=== PATIENT | female | born 1980 | race Caucasian/White ===

== ENCOUNTER 2019-02-15 20:57 | Observation (INO) | payer OTHER ==
[~2019-02-15] VITALS: Ht 167.6 cm; Wt 74.4 kg
[2019-02-15 21:53] VITALS: BP 102/63; PULSE 65; RESP 19
[2019-02-15 21:56] VITALS: Ht 167.6 cm; Wt 74.4 kg
[2019-02-15] MEDS ORDERED: NACL 0.9% 3 ML SYG IV SCH (22:00)
[2019-02-15] MEDS ORDERED: BISACODYL (EC) 5 MG TAB PO PRN (22:00)
[2019-02-15] MEDS ORDERED: DOCUSATE SODIUM 100 MG CAP PO PRN (22:00)
[2019-02-15] MEDS ORDERED: ACETAMINOPHEN 325 MG TAB PO PRN (22:00)
[2019-02-15] MEDS ORDERED: ONDANSETRON 4 MG INJ IV PRN ×2 (22:00)
--- NOTE | 2019-02-15 22:02 | HP ---
Date/Time of Note Date/Time of Note DATE: 02/15/19 TIME: 22:02 Assessment/Plan VTE Prophylaxis SCD applied (from Nsg): Yes Pharmacological prophylaxis: NA/contraindicated Pharm contraindication: low risk/ambulating Assessment/Plan Hospital Course This is a 38-year-old female being admitted to the telemetry floor for: #1 headache with blurry vision: Possibly secondary to underlying migraine vs tension versus ophthalmologic etiology. MRI of the brain did not show any acute abnormalities. Patient initially reported a headache followed by blurry vision. She does report that her symptoms have improved, but she does still notice spots in her eyes. At the current time will provide her Tylenol for her headaches. Unfortunately we do not have ophthalmology specialty readily available, however in the a.m. we will ask the dayshift to see if we may be able to have a specialist come see the patient. I have consulted OB on the [email or web address] to assist in consultation. #2 diabetes mellitus: We will check a hemoglobin A1c. #3 Abnormal ABG: ABG performed at the transferring hospital was concerning and that it showed arterial O2 of 32. I will obtain a stat ABG to confirm this. She is currently satting at 100% on room air and denies any shortness of breath. If her ABG turns out to be abnormal will order a chest x-ray and VQ scan. #4 normocytic anemia: We will check iron stores #5 intrauterine : Patient is 14 weeks . Will obtain a abdominal ultrasound. OB has already been consulted. Also order Doppler heart sounds. #6 bilateral lower extremity pain: Patient does have some mild tenderness on examination but there is no erythema or warmth or swelling noted. Will obtain a venous Doppler ultrasound of the lower extremities bilaterally stat. #7 DVT GI prophylaxis: SCDs once lower extremity DVT is ruled out., no GI prophylaxis indicated Further treatment strategy will be implemented for clinical course HPI/ROS Admit Date/Time Admit Date/Time Feb 15, 2019 at 21:20 Hx of Present Illness Chief complaint: Blurred vision This is a 42-year-old female G5, who is currently 14 weeks who was transferred from [facility] where she presented for symptoms of blurred vision and headache that began this morning. States that she went to sleep with a headache. She reported that she woke up in the morning and noticed that she had blurred vision. She denied any chest pain nausea vomiting or diarrhea. Denies any vaginal bleeding or vaginal discharge. She apparently was told that she might be put on insulin next week. Patient had an MRI brain without contrast performed which showed: Normal MRI of the brain. She also had a ultrasound of the OB 14 weeks which showed: Single live intrauterine with a heart rate of 147 bpm fetus is viable presentation. Placenta is fundal. Single live intrauterine of 14 weeks and 6 days. She was recently told that she was diabetic but has not been started on any medications. Upon arrival to [facility] emergency department patient reports improvement in her symptoms. She does report light sensitivity. And at times she reports Pertinent laboratory findings from transfer facility please see chart for full details: Glucose 117 White blood cells 9 hemoglobin 11.5 hematocrit 34.2 platelet count 290 Sodium 137 potassium 3.6 chloride 105 CO2 26 creatinine 0.6 BUN 7 Beta-hCG 72,188 blood type a positive Direct bili 0.1 total bili 0.4 alk phos 32 ALT 19 AST 18 ABG: Arterial pH 7.43/CO2 36/O2 32/bicarb 23.9 Allergies: NKDA Medications: vitamins ROS Const: As per HPI Eyes : As per HPI ENT: No pain, sore throat, congestion, congestion, dysphagia or discharge Respiratory: No shortness of breath, cough, sputum, wheezing, or pleuritic pain Cardiovascular: No chest pain, palpitation, PND, or edema GI : no change in appetite, abdominal pain, nausea, vomiting, diarrhea, constipation, or change in the color his stool Genitourinary: No dysuria, hematuria, flank pain , discharge or CVA tenderness Musculoskeletal: As per HPI Skin: No rash, bruising or hives Neuro: No headache, dizziness, syncope, seizure, focal weakness Endocrine: No polyuria, polydipsia, temperature intolerance Psych: No hallucination, depression, anxiety or suicidal ideation PMH/Family/Social Past Medical History Diabetes mellitus type 2 Medications Current Medications IV Flush (NS 3 ml) 3 ml PER PROTOCOL IV ; Start 02/15/19 at 22:00 Acetaminophen (Tylenol Tab) 650 mg Q6H PRN PO .PAIN 1-3 OR TEMP; Start 02/15/19 at 22:00 Docusate Sodium (Colace) 100 mg Q12H PRN PO .CONSTIPATION; Start 02/15/19 at 22:00 Bisacodyl (Dulcolax) 5 mg DAILY PRN PO .CONSTIPATION; Start 02/15/19 at 22:00 Ondansetron HCl (Zofran Inj) 4 mg Q4H PRN IV NAUSEA/VOMITING; Start 02/15/19 at 22:00 Coded Allergies: No Known Allergy (Unverified , 05/29/15) Past Surgical History Past Surgical Hx: no surgical history Family History Significant Family History: no pertinent family hx Social History Alcohol Use: none Smoking Status: Never smoker Drug Use: none Exam/Review of Systems Vital Signs Vitals Vital Signs Date Temp Pulse Resp B/P (MAP) Pulse Ox O2 O2 Flow FiO2 Time Delivery Rate 02/15/19 98.3 65 19 102/63 97 Room Air 21:53 (76) Exam Exam General: Patient is currently lying in bed in no acute distress HEENT: Atraumatic, normocephalic. The pupils are equal, round and reactive. Extraocular motor are intact, she does report spots in the eye subjectively, on visual examination I was not able to elicit any abnormalities Neck: Supple with full range of motion. No rigidity or meningismus Chest: Nontender Lungs: Clear to auscultation bilaterally no crackles rales or wheezing Heart: Normal S1-S2, Regular rhythm and rate. No murmur, S3, or S4 Abdomen: Gravid, soft , nontender, nondistended , bowel sounds are present. No guarding no rebound tenderness , No masses or organomegaly. No costovertebral temporal angle mass Extremities: Mild tenderness noted of the bilateral lower extremities, but no overt swelling appreciated, Neurologic: Normal mental status, speech normal, cranial nerves II through XII are intact, motor and sensory are intact, no focal weakness, strength 5 out of 5 in bilateral upper and lower extremities RADHA KUMARI Feb 15, 2019 22:02
[2019-02-16] VITALS: BP_SYST 109; BP_SYST 110; BP_SYST 116; BP_DIAS 56; BP_DIAS 58; BP_DIAS 60; PULSE 65; RESP 20
[2019-02-16] MEDS ORDERED: POTASSIUM CHLORIDE (SR) 20 MEQ TAB PO STA (04:35)
[2019-02-16] MEDS ORDERED: MAGNESIUM SULFATE 1 GM/D5W 100 ML IVPB ONE (05:00)
[2019-02-16 05:40] VITALS: BP 97/55; PULSE 73; RESP 21
[2019-02-16] MEDS ORDERED: SOD CHLORIDE 0.9% 500 ML IV ONE (07:00)
[2019-02-16 07:19] VITALS: BP 89/54; PULSE 57; RESP 19
[2019-02-16 11:22] VITALS: BP_SYST 111; BP_SYST 96; BP_SYST 98; BP_DIAS 53; BP_DIAS 55; PULSE 56; RESP 19
--- NOTE | 2019-02-16 11:37 | PDOCDIS ---
Discharge Instructions DIAGNOSIS Discharge Diagnosis Headache CONDITION [id number] Patient Condition: [id number] Stable FOLLOW UP/APPOINTMENTS Follow-up Plan Continue pre- care as prescribed by your manager van It is important to eat a healthy diet low in sugar Check with your obstetritian on whether you need to have your blood sugar checked in the next couple weeks JENIFFER JAMES MD Feb 16, 2019 11:37
--- NOTE | 2019-02-16 13:48 | DS ---
Date/Time of Note Date/Time of Note DATE: 02/16/19 TIME: 13:46 Discharge Summary Admission/Discharge Info Admit Date/Time Feb 15, 2019 at 21:20 Discharge Date/Time Discharge Diagnosis Headache Patient Condition: Stable Hospital Course The patient underwent MRI of her brain which was negative for any acute abnormalities. She was provided analgesia. She continued to have mild headache but visual symptoms completely resolved. I suspect this is tension headache with aura. She has no clinical or radiographic suggestion of stroke or other acute neurologic process. Given resolved symptosm and patient request to go home, I will discharge her and she will follow up with her building consultant as an outpatient Home Meds No Active Prescriptions or Reported Meds Follow-up Plan Continue pre- care as prescribed by your building consultant It is important to eat a healthy diet low in sugar Check with your obstetritian on whether you need to have your blood sugar checked in the next couple weeks Primary Care Provider Not On Staff Doctor Pending Labs Laboratory Tests Test 02/15/19 22:03 02/15/19 22:06 02/15/19 22:50 02/16/19 05:45 Sodium Level 138 mmol/L (135-144 ) Potassium 3.8 Level mmol/L (3.5-5.1 ) Chloride Level 107 mmol/L (97-110) Carbon Dioxide 25 Level mmol/L (21-31) Anion Gap 6 (5-13) Blood Urea 7 mg/dl (7-20) Nitrogen Creatinine 0.57 mg/dl (0.44-1.0 0) Est Glomerular > 60 Filtrat mL/min (>60) Rate mL/min Glucose Level 73 mg/dl (70-220) Calcium Level 9.0 mg/dl (8.4-10.2 ) Magnesium 1.8 Level mg/dl (1.7-2.5) Total 0.2 Bilirubin mg/dl (0.2-1.3) Direct 0.00 Bilirubin mg/dl (0.00-0.2 0) Indirect 0.2 Bilirubin mg/dl (0-1.1) Aspartate Amino 18 IU/L (15-46) Transf (AST/SGO T) Alanine 17 IU/L (13-69) Aminotransferas e (ALT/SGPT) Alkaline 38 Phosphatase IU/L (42-121) Total Protein 6.2 g/dl (6.1-8.1) Albumin 3.3 g/dl (3.3-4.9) Globulin 2.90 g/dl (1.3-3.2) Albumin/Globuli 1.13 n Ratio White Blood 9.1 Count 10^3/ul (4.8-1 0.8) Red Blood 3.75 Count 10^6/ul (4.20- 5.40) Hemoglobin 10.3 g/dl (12.0-16. 0) Hematocrit 31.2 % (37.0-47.0) Mean 83.2 Corpuscular fl (82.0-101.0 Volume ) Mean 27.5 Corpuscular pg (29.0-33.0) Hemoglobin Mean 33.0 Corpuscular g/dl (32.0-37. Hemoglobin Conc 0) ent Red Cell 13.2 Distribution % (11.5-14.5) Width Platelet Count 283 10^3/UL (140-4 15) Mean Platelet 10.5 Volume fl (7.4-10.4) Immature 0.600 Granulocytes % % (0.001-0.429 ) Neutrophils % 67.4 % (39.0-77.0) Lymphocytes % 19.0 % (15.0-51.0) Monocytes % 9.6 % (0.0-11.0) Eosinophils % 3.1 % (0.0-7.0) Basophils % 0.3 % (0.0-2.0) Nucleated Red 0.0 Blood Cells % /100WBC (0.0-0 .0) Immature 0.050 Granulocytes # 10^3/ul (0.0-0 .031) Neutrophils # 6.1 10^3/ul (1.6-7 .5) Lymphocytes # 1.7 10^3/ul (0.8-2 .9) Monocytes # 0.9 10^3/ul (0.3-0 .9) Eosinophils # 0.3 10^3/ul (0.0-0 .5) Basophils # 0.0 10^3/ul (0.0-0 .1) Nucleated Red 0.0 Blood Cells # 10^3/ul (0.0-0 .0) Blood Gas Blood arterial Specimen Source Arterial Blood 02/16/2019 12:2 Date Drawn 0:01 AM Arterial Blood 7.384 (7.350-7 pH .450) (Temp corrected ) Arterial Blood 37.9 pCO2 mmhg (35-45) (Temp correct) Arterial Blood 97.2 pO2 mmHG (80-100.0 (Temp corrected ) ) Arterial Blood 22.1 HCO3 mmol/L (22.0-2 6.0) Arterial Blood -2.6 Base Excess mmol/L (-3.0-3 ) Arterial Blood 96.8 Oxygen Saturati mmHG (95.0-98. on 0) Darryl Test ACCEPTAB Arterial Blood Right Brachial Gas Puncture Site Arterial 0.3 Blood Carboxyhe % (0.0-3.0) moglobin Arterial Blood 0.2 Methemoglobin % (0.0-1.5) Blood Gas A-a 7.1 O2 mmHg (7.0-24.0 Differential ) Oxyhemoglobin 96.3 Percent % (93.0-99.0) Blood Gas 37.0 C Temperature Blood Gas 20 Actual Respiration Rat e Blood Gas ROOM AIR Modality FiO2 21.0 % Blood Gas S.H. Notified Whom Blood Gas 02/16/2019 12:2 Notified Time 5:03 AM Urine Color YELLOW (YELLOW ) Urine Clarity CLEAR (CLEAR) Urine pH 6.0 (5.0-9.0) Urine Specific 1.019 (1.003-1 Carmi .030) Urine Ketones NEGATIVE mg/dL (NEGATIV E) Urine Nitrite NEGATIVE mg/dL (NEGATIV E) Urine NEGATIVE Bilirubin mg/dL (NEGATIV E) Urine NEGATIVE Urobilinogen mg/dL (NEGATIV E) Urine Leukocyte NEGATIVE Alisa/u Esterase l Urine NEGATIVE Hemoglobin mg/dL (NEGATIV E) Urine Glucose NEGATIVE mg/dL (NEGATIV E) Urine Total NEGATIVE Protein mg/dl (NEGATIV E) Urine Opiates Negative (NEGA Screen TIVE) Urine Negative (NEGA Barbiturates TIVE) Urine Negative (NEGA Amphetamines TIVE) Screen Urine Negative (NEGA Benzodiazepines TIVE) Screen Urine Cocaine Negative (NEGA Screen TIVE) Urine Negative (NEGA Cannabinoids TIVE) Test 02/16/19 06:10 White Blood 8.9 Count 10^3/ul (4.8-10 .8) Red Blood 3.60 Count 10^6/ul (4.20-5 .40) Hemoglobin 10.1 g/dl (12.0-16.0 ) Hematocrit 34.7 % (37.0-47.0) Mean 96.4 Corpuscular fl (82.0-101.0) Volume Mean 28.1 Corpuscular pg (29.0-33.0) Hemoglobin Mean 29.1 Corpuscular g/dl (32.0-37.0 Hemoglobin Conc ) ent Red Cell 13.3 Distribution % (11.5-14.5) Width Platelet Count 186 10^3/UL (140-41 5) Mean Platelet 10.0 Volume fl (7.4-10.4) Immature 0.400 Granulocytes % % (0.001-0.429) Neutrophils % 65.7 % (39.0-77.0) Lymphocytes % 21.6 % (15.0-51.0) Monocytes % 8.5 % (0.0-11.0) Eosinophils % 3.4 % (0.0-7.0) Basophils % 0.4 % (0.0-2.0) Nucleated Red 0.0 Blood Cells % /100WBC (0.0-0. 0) Immature 0.040 Granulocytes # 10^3/ul (0.0-0. 031) Neutrophils # 5.9 10^3/ul (1.6-7. 5) Lymphocytes # 1.9 10^3/ul (0.8-2. 9) Monocytes # 0.8 10^3/ul (0.3-0. 9) Eosinophils # 0.3 10^3/ul (0.0-0. 5) Basophils # 0.0 10^3/ul (0.0-0. 1) Nucleated Red 0.0 Blood Cells # 10^3/ul (0.0-0. 0) Sodium Level 136 mmol/L (135-144 ) Potassium 3.7 Level mmol/L (3.5-5.1 ) Chloride Level 106 mmol/L (97-110) Carbon Dioxide 24 Level mmol/L (21-31) Anion Gap 6 (5-13) Blood Urea 9 mg/dl (7-20) Nitrogen Creatinine 0.61 mg/dl (0.44-1.0 0) Est Glomerular > 60 Filtrat mL/min (>60) Rate mL/min Glucose Level 69 mg/dl (70-220) Hemoglobin A1c 5.1 % (0-5.9) Calcium Level 8.9 mg/dl (8.4-10.2 ) Magnesium 1.8 Level mg/dl (1.7-2.5) Total 0.3 Bilirubin mg/dl (0.2-1.3) Direct 0.00 Bilirubin mg/dl (0.00-0.2 0) Indirect 0.3 Bilirubin mg/dl (0-1.1) Aspartate Amino 20 IU/L (15-46) Transf (AST/SGO T) Alanine 19 IU/L (13-69) Aminotransferas e (ALT/SGPT) Alkaline 38 Phosphatase IU/L (42-121) Total Protein 5.3 g/dl (6.1-8.1) Albumin 3.0 g/dl (3.3-4.9) Globulin 2.30 g/dl (1.3-3.2) Albumin/Globuli 1.30 n Ratio Triglycerides 220 Level mg/dl (0-149) Cholesterol 136 Level mg/dl (100-200) LDL 53 mg/dl Cholesterol, Calculated HDL 39 Cholesterol mg/dl (34-88) Cholesterol/HDL 3.4 RATIO Ratio Thyroid 2.440 Stimulating MIU/L (0.465-4. Hormone (TSH) 680) JENIFFER JAMES MD Feb 16, 2019 13:48
== END 2019-02-16 13:56 | disposition home or self-care (01) ==
LOC: E/R 20:57 → TEL 21:20 → INTOOBSV 21:20
PROVIDERS: ADMIT Internal Medicine; ATTEND Internal Medicine
DX: O26.892 Other specified pregnancy related conditions, second trimester (principal); R51 Headache; H53.8 Other visual disturbances; E11.9 Type 2 diabetes mellitus without complications; D64.9 Anemia, unspecified; M79.605 Pain in left leg; M79.604 Pain in right leg; Z3A.14 14 weeks gestation of pregnancy
CPT/HCPCS: 36600; 76801; 80053; 80061; 80307; 81003; 82306; 82803; 83036; 83735; 84443; 85025; 93970; J3475; J7040; Z7500; Z7610; G0378